=== PATIENT | male | born 1990 | race Caucasian/White ===

== ENCOUNTER 2016-07-07 17:45 | Emergency (ER) | payer OTHER ==
--- NOTE | 2016-07-07 18:49 | DIAGNOSTIC IMAGING REPORT ---
PROCEDURE: XR CHEST 2 VIEW INDICATION: SHORTNESS OF BREATH TECHNIQUE: Two views. COMPARISON: None. FINDINGS: The cardiomediastinal contour and central vasculature are within normal limits. The lungs are clear without focal consolidation, pleural effusion, or pneumothorax. The visualized osseous structures are intact. IMPRESSION: 1. Normal chest.
--- NOTE | 2016-07-07 20:35 | ED ORDER SUMMARY ---
..... Patient: RIMA GILL OrderSheet [facility] VisitID: [id number] [address] [place] [address] 26y, M Registration Date/Time: 07/07/2016 ORDER SHEET Weight: 81.6 kg (stated) Allergies: Acetaminophen, Sulfa Antibiotics, Naproxen GENERAL ORDERS: Chest 2V Urgent (18:06 07/07/2016 TChapman R.N. per protocol) (18:27 DDean R.N.) MEDICATION ORDERS: Morphine IM 10 mg (HIGH ALERT MEDICATION, NOW) (18:39 07/07/2016 Du Ballesteros) (Ack 18:41 DDean R.N.) (18:47 TChapman R.N.) IV FLUIDS: ORDER SHEET NOTES: [Electronically signed by Nancy Tobar R.N. (21:55 07/07/2016)] [Electronically signed by Dale Vega Dr. (03:21 07/15/2016)] [Electronically locked/signed by Nancy Tobar R.N. (21:55 07/07/2016)]
--- NOTE | 2016-07-07 20:35 | ED NURSING NOTES ---
Clinical Report - Nurses [facility] [address] [place] [address] 07/07/2016 17:48 [id number] TRI[facility] Triage time 17:52. Acuity: LEVEL 4. Chief Complaint: BACK PAIN. Alert. No acute distress. NICOLETTE COMA SCORE: [place] Coma Scale: 15- eyes open spontaneously (4); best verbal response- oriented x 4 (5); best motor response- obeys commands (6). --17:57 Fabiana Maldonado R.N. 17:52 07/07/16. BP: 110/79. HR: 66. RR: 18. O2 saturation: 100%. Temp: 98.2 F (oral). Pain level now: 810. --17:57 Fabiana Maldonado R.N. Weight: 81.6 kg stated. Height/Length: 72 inches Per Patient. BMI: 24.4. --17:55 Fabiana Maldonado R.N. Medications None. --17:54 Fabiana Maldonado R.N. Medication/allergy information source: the patient. --17:57 Fabiana Maldonado R.N. Allergies Acetaminophen. (liver problems) Sulfa Antibiotics.(Anaphylaxis) --17:54 Fabiana Maldonado R.N. Naproxen. (abdominal pain) --17:55 Fabiana Maldonado R.N. History Arrived by private vehicle. Historian: patient. Unaccompanied. Primary physician (none). Onset. (2 days ago). History of recent trauma- (slammed on his back roughhousing with a friend). SOCIAL HX: Heavy tobacco smoker- less than 1 pack per day. History of drug use: marijuana. No alcohol use. FALL RISK ASSESSMENT: Fall risk assessment completed. No fall risk identified. FUNCTIONAL ASSESSMENT: Functional assessment: no impairments noted. LEARNING NEEDS ASSESSMENT: The learning needs assessment revealed no barriers. --17:57 Fabiana Maldonado R.N. PROBLEMS: no known problems. ADDITIONAL SURGERIES: no known surgeries. Assessment GENERAL / NEURO / PSYCH: Alert. Oriented X 4. Appears in no acute distress. Patient appears calm and cooperative. RESPIRATORY: Respirations not labored. SKIN: Skin is warm and dry. --17:57 Fabiana Maldonado R.N. Interventions ID and allergy band on patient. To waiting room. --17:57 Fabiana Maldonado R.N. PHYSICAL ASSESSMENT 18:06. Ambulatory to room. GENERAL / NEURO / PSYCH: Alert. Appears in no acute distress. No numbness. RESPIRATORY: Mild respiratory distress. Chest wall tenderness. Decreased breath sounds in the left lung base and mid-lung. CVS: Capillary refill less than 2 seconds. GI / : Abdomen soft and nontender. Bowel sounds within normal limits. EXTREMITIES: Limited ROM present in the right shoulder and left shoulder and left upper arm. Sensation intact in extremities. BACK: Limited ROM of the neck and back. Soft tissue tenderness. --18:06 Ijeoma Medeiros R.N. NURSING PROGRESS NOTES 18:00. Patient gowned. Head of bed elevated. Reassurance given. Patient identifiers checked. Call light placed in reach. Side rails up. Bed placed in lowest position. Patient ready for evaluation- chart flagged. --18:26 Nancy Tobar R.N. 18:10. Patient walked to radiology with tech. --18:26 Nancy Tobar R.N. 18:20. Patient walked back to ED from radiology with tech. --18:27 Nancy Tobar R.N. 18:47 07/07/2016 Morphine (Morphine Sulfate (PF)) IM 10 mg given. Given in the left deltoid. Allergies verified, confirmed 5 rights and sedative warning given to the patient. --18:47 Ijeoma Medeiros R.N. Reassessment after medication administered. He is calm and resting quietly. Overall patient status is improved- he states feels better (states pain 6/10 now). --19:37 Nancy Tobar R.N. 19:30 07/07/16. BP: 98/58. HR: 90. RR: 16. O2 saturation: 98% on room air. Temp: deferred. Pain level now: 6/10. Additional comments: pt resting quietly,playing on phone. states pain is better now 10/25. --19:37 Nancy Tobar R.N. 20:15 on phone with friend to come shrimp picker up. --21:55 Nancy Tobar R.N. DISPOSITION / DISCHARGE 20:45. Condition at departure: stable. No learning barriers present. Discharge instructions provided and reviewed with the patient. Reviewed medication(s) (oxycodon). Patient verbalized understanding. Written instructions provided in Slovak. The patient was discharged home and accompanied by meat stuffer. He left the Emergency Department ambulatory and via private vehicle. [employer] driving. --21:54 Nancy Tobar R.N. 20:45 07/07/16. BP: 104/66. HR: 92. RR: 20. O2 saturation: 98% on room air. Temp: deferred. Pain level now: 10/25. --21:54 Nancy Tobar R.N. Locked/Released at 07/07/2016 21:55 by Nancy Tobar R.N.
--- NOTE | 2016-07-07 20:35 | ED NURSING NOTES ---
Clinical Report - Nurses [facility] [address] [place] [address] 07/07/2016 17:48 [id number] Triage time 17:52. Acuity: LEVEL 4. Chief Complaint: BACK PAIN. Alert. No acute distress. NICOLETTE COMA SCORE: [place] Coma Scale: 15- eyes open spontaneously (4); best verbal response- oriented x 4 (5); best motor response- obeys commands (6). --17:57 Fabiana Maldonado R.N. 17:52 07/07/16. BP: 110/79. HR: 66. RR: 18. O2 saturation: 100%. Temp: 98.2 F (oral). Pain level now: 810. --17:57 Fabiana Maldonado R.N. Weight: 81.6 kg stated. Height/Length: 72 inches Per Patient. BMI: 24.4. --17:55 Fabiana Maldonado R.N. Medications None. --17:54 Fabiana Maldonado R.N. Medication/allergy information source: the patient. --17:57 Fabiana Maldonado R.N. Allergies Acetaminophen. (liver problems) Sulfa Antibiotics.(Anaphylaxis) --17:54 Fabiana Maldonado R.N. Naproxen. (abdominal pain) --17:55 Fabiana Maldonado R.N. History Arrived by private vehicle. Historian: patient. Unaccompanied. Primary physician (none). Onset. (2 days ago). History of recent trauma- (slammed on his back roughhousing with a friend). SOCIAL HX: Heavy tobacco smoker- less than 1 pack per day. History of drug use: marijuana. No alcohol use. FALL RISK ASSESSMENT: Fall risk assessment completed. No fall risk identified. FUNCTIONAL ASSESSMENT: Functional assessment: no impairments noted. LEARNING NEEDS ASSESSMENT: The learning needs assessment revealed no barriers. --17:57 Fabiana Maldonado R.N. PROBLEMS: no known problems. ADDITIONAL SURGERIES: no known surgeries. Assessment GENERAL / NEURO / PSYCH: Alert. Oriented X 4. Appears in no acute distress. Patient appears calm and cooperative. RESPIRATORY: Respirations not labored. SKIN: Skin is warm and dry. --17:57 Fabiana Maldonado R.N. Interventions ID and allergy band on patient. To waiting room. --17:57 Fabiana Maldonado R.N. PHYSICAL ASSESSMENT 18:06. Ambulatory to room. GENERAL / NEURO / PSYCH: Alert. Appears in no acute distress. No numbness. RESPIRATORY: Mild respiratory distress. Chest wall tenderness. Decreased breath sounds in the left lung base and mid-lung. CVS: Capillary refill less than 2 seconds. GI / : Abdomen soft and nontender. Bowel sounds within normal limits. EXTREMITIES: Limited ROM present in the right shoulder and left shoulder and left upper arm. Sensation intact in extremities. BACK: Limited ROM of the neck and back. Soft tissue tenderness. --18:06 Ijeoma Medeiros R.N. NURSING PROGRESS NOTES 18:00. Patient gowned. Head of bed elevated. Reassurance given. Patient identifiers checked. Call light placed in reach. Side rails up. Bed placed in lowest position. Patient ready for evaluation- chart flagged. --18:26 Nancy Tobar R.N. 18:10. Patient walked to radiology with tech. --18:26 Nancy Tobar R.N. 18:20. Patient walked back to ED from radiology with tech. --18:27 Nancy Tobar R.N. 18:47 07/07/2016 Morphine (Morphine Sulfate (PF)) IM 10 mg given. Given in the left deltoid. Allergies verified, confirmed 5 rights and sedative warning given to the patient. --18:47 Ijeoma Medeiros R.N. Reassessment after medication administered. He is calm and resting quietly. Overall patient status is improved- he states feels better (states pain 6/10 now). --19:37 Nancy Tobar R.N. 19:30 07/07/16. BP: 98/58. HR: 90. RR: 16. O2 saturation: 98% on room air. Temp: deferred. Pain level now: 6/10. Additional comments: pt resting quietly,playing on phone. states pain is better now 10/25. --19:37 Nancy Tobar R.N. 20:15 on phone with friend to come picker machine operator up. --21:55 Nancy Tobar R.N. DISPOSITION / DISCHARGE 20:45. Condition at departure: stable. No learning barriers present. Discharge instructions provided and reviewed with the patient. Reviewed medication(s) (oxycodon). Patient verbalized understanding. Written instructions provided in [place]ian. The patient was discharged home and accompanied by countersinker balance screw hole. He left the Emergency Department ambulatory and via private vehicle. [employer] Records Field Technician driving. --21:54 Nancy Tobar R.N. 20:45 07/07/16. BP: 104/66. HR: 92. RR: 20. O2 saturation: 98% on room air. Temp: deferred. Pain level now: 10/25. --21:54 Nancy Tobar R.N. Locked/Released at 07/07/2016 21:55 by Nancy Tobar R.N.
--- NOTE | 2016-07-07 20:35 | ED ORDER SUMMARY ---
..... Patient: RIMA GILL OrderSheet [facility] VisitID: [id number] [address] [place] [address] 26y, M Registration Date/Time: 07/07/2016 ORDER SHEET Weight: 81.6 kg (stated) Allergies: Acetaminophen, Sulfa Antibiotics, Naproxen GENERAL ORDERS: Chest 2V Urgent (18:06 07/07/2016 TChapman R.N. per protocol) (18:27 DDean R.N.) MEDICATION ORDERS: Morphine IM 10 mg (HIGH ALERT MEDICATION, NOW) (18:39 07/07/2016 Du Ballesteros) (Ack 18:41 DDean R.N.) (18:47 TChapman R.N.) IV FLUIDS: ORDER SHEET NOTES: [Electronically signed by Nancy Tobar R.N. (21:55 07/07/2016)] [Electronically signed by Dale Vega Dr. (03:21 07/15/2016)] [Electronically locked/signed by Nancy Tobar R.N. (21:55 07/07/2016)]
--- NOTE | 2016-07-07 20:40 | ED CLINICAL REPORT ---
Clinical Report - Physicians/Mid Levels [facility] [address] [place] [address] 07/07/2016 17:48 Patient: RIMA GILL Arrived- By private vehicle. Historian- patient. HISTORY OF PRESENT ILLNESS Chief Complaint: Injury to BACK. Location of injuries- (left upper back). The injury occurred today. ("body slammed on back while wrestling with friend"). Occurred at home. The patient complains of moderate pain. No blow to the head, neck pain, loss of consciousness or seizure. Not dazed. REVIEW OF SYSTEMS No numbness, weakness, hearing loss, chest pain or depression. No difficulty breathing, nausea or laceration. All systems otherwise negative, except as recorded above. PAST HISTORY See nurses notes. Tetanus immunization status is up-to-date. Problems: no known problems. Additional Surgeries: no known surgeries. Medications: None. Allergies: Acetaminophen. (liver problems) Naproxen. (abdominal pain) Sulfa Antibiotics.(Anaphylaxis). SOCIAL HISTORY Smoker- current status unknown. History of occasional drug use: marijuana. No alcohol use. Is a local resident. ADDITIONAL NOTES The nursing notes have been reviewed. PHYSICAL EXAM Vital Signs: 07/07/2016 17:52 BP: 110/79. HR: 66. RR: 18. O2 saturation: 100%. Temp: 98.2 F. Pain level now: 8/10. Blood pressure normal. Oxygen saturation normal. Appearance: Alert. Oriented X3. No acute distress. Head: Head non-tender. No swelling of head. No Vital's sign or raccoon eyes. Eyes: Pupils equal, round and reactive to light. Pupillary exam: Right pupil round and reactive to light directly and consensually. Left pupil: 3mm, round and reactive to light directly and consensually and with accommodation. EOM intact. ENT: No dental injury. No hemotympanum. Pharynx normal. Neck: No decreased ROM in the neck. Painless ROM. Non-tender. No vertebral tenderness. CVS: Heart sounds normal. Pulses normal. Respiratory: Breath sounds normal. Chest nontender. No rales, wheezes, rhonchi or crepitus. Abdomen: No visible injury. Soft and nontender. Bowel sounds normal. No mass. Back: Mild soft-tissue tenderness (left lateral upper back). ROM normal. No vertebral point tenderness, muscle spasm or limitation in ROM. (no overlying skin changes. no crepitus.). Skin: Skin intact. Skin warm and dry. Normal skin color. Normal skin turgor. Extremities: Normal inspection. Extremities atraumatic. Neuro: [place] Coma Scale: 15- eyes open spontaneously (4); best verbal response- oriented x 3 (5); best motor response- obeys commands (6). Oriented X 3. No motor deficit. LABS, X-RAYS, AND EKG Chest X-ray: (PROCEDURE: XR CHEST 2 VIEW INDICATION: SHORTNESS OF BREATH TECHNIQUE: Two views. COMPARISON: None. FINDINGS: The cardiomediastinal contour and central vasculature are within normal limits. The lungs are clear without focal consolidation, pleural effusion, or pneumothorax. The visualized osseous structures are intact. IMPRESSION: 1. Normal chest.). Views: PA and lateral. The X-rays were independently viewed by me, interpreted by the radiologist and discussed with the radiologist. PROGRESS AND PROCEDURES Course of Care: the patient is a pleasant 26-year-old male presenting for evaluation of traumatic injury from wrestling with his friend. The patient has no outward signs of trauma on examination however does have some tenderness to the left upper back. Lungs are clear to auscultation. Do not feel patient has pneumothorax. Vital signs here in the emergency Department otherwise unremarkable. Patient without any shortness of breath. Pain medication provided here in the emergency department. Patient will be evaluated with chest x-ray. Patient is agreeable to treatment plan. The patient's chest x-ray was reviewed. No signs of pneumothorax or rib fractures Patient's pain had significantly improved while pain medication here in the emergency department. Had discussion with patient in regards to pneumothorax and reasons to return to the emergency department. Also discussed the patient pneumonia risk reduction with deep respirations and splinting with a pillow. Do not feel patient needs to be admitted to the hospital require further emergency department workuas been here and has not had any worsening of his symptoms. Patient is resting and in no acute distress. Discussed the patient workup, diagnosis, home care, follow-up, and return precautions. All questions answered. The patient expressed understanding of these instructions and was agreeable to them. Also discussed the patient diagnostic concerning to here in the emergency department and need for primary care follow-up and also possibility of small work and ribs that may not be found onx-ray here in the emergency department but may be evident later on in future imaging. Disposition: Discharged. Condition: good. CLINICAL IMPRESSION 07/07/2016 17:52 BP: 110/79. HR: 66. RR: 18. O2 saturation: 100%. Temp: 98.2 F. Pain level now: 8/10. Blood pressure normal. Oxygen saturation normal. Single contusion to the left chest. (lateral posterior). INSTRUCTIONS Warnings: GENERAL WARNINGS: Return or contact your physician immediately if your condition worsens or changes unexpectedly, if not improving as expected, or if other problems arise. SPECIFICALLY, return if you develop weakness, numbness, tingling, pain or incontinence. shortness of breath, worsening pain, or other concerns. Your Current Medications: CONTINUE TAKING THE FOLLOWING MEDICATIONS: None*. Prescription Medications: Oxycodone 5 mg tablets: take 1 orally every 6 hours as needed for pain. Dispense ten (10). No refill. Follow-up: Return to the emergency department as needed. Follow up with your doctor in three days. Reason for referral: rechecked todaysconcerns. Summary of care provided to patient via paper. Screening today revealed the patient's blood pressure to be in the normal range. The patient should follow up with a primary care provider for blood pressure management. Understanding of the discharge instructions verbalized by patient. (Electronically signed by Dale Vega Dr. 07/15/2016 3:21)
--- NOTE | 2016-07-15 03:22 | ED MED RECONCILIATION SUMMARY ---
Patient: RIMA GILL Medication Reconciliation Report [facility] VisitID: [id number] [address] [place] [address] 26y, M Registration Date/Time: 07/07/2016 Weight: 81.6 kg Height/Length: 72 in. BMI: 24.4 ALLERGIES: Acetaminophen, Naproxen, Sulfa Antibiotics The patient's Home Medications are listed below: NONE. The source(s) of the original Home Medication information: patient The following Medications were given to the patient in the Emergency Department: Morphine [IM] IM 10 mg, administered: 07/07/2016 6:47:00 PM The following Medications were prescribed to the patient: Oxycodone 5 mg tablets: take 1 orally every 6 hours as needed for pain. Dispense ten (10). No refill. -- Dale Vega Dr.
--- NOTE | 2016-07-15 03:22 | ED DISCHARGE INSTRUCTIONS ---
Patient: RIMA GILL General Instructions [facility] VisitID: [id number] [place] [address] 26y, M Registration Date/Time: 07/07/2016 07/07/2016 17:52 BP: 110/79. HR: 66. RR: 18. O2 saturation: 100%. Temp: 98.2 F. Pain level now: 8/10. Blood pressure normal. Oxygen saturation normal. Single contusion to the left chest. (lateral posterior). INSTRUCTIONS Warnings: GENERAL WARNINGS: Return or contact your physician immediately if your condition worsens or changes unexpectedly, if not improving as expected, or if other problems arise. SPECIFICALLY, return if you develop weakness, numbness, tingling, pain or incontinence. shortness of breath, worsening pain, or other concerns. Your Current Medications: CONTINUE TAKING THE FOLLOWING MEDICATIONS: None*. Prescription Medications: Oxycodone 5 mg tablets: take 1 orally every 6 hours as needed for pain. Dispense ten (10). No refill. Follow-up: Return to the emergency department as needed. Follow up with your doctor in three days. Reason for referral: rechecked todaysconcerns. Summary of care provided to patient via paper. Screening today revealed the patient's blood pressure to be in the normal range. The patient should follow up with a primary care provider for blood pressure management. Understanding of the discharge instructions verbalized by patient. ADDITIONAL INFORMATION Oxycodone Hydrochloride, Acetaminophen Oral tablet What is this medicine? ACETAMINOPHEN; OXYCODONE (a set a SANTIAGO quynh fen; ox i KOE done) is a pain reliever. It is used to treat mild to moderate pain. How should I use this medicine? Take this medicine by mouth with a full glass of water. Follow the directions on the prescription label. Take your medicine at regular intervals. Do not take your medicine more often than directed. Talk to your tape making machine operator regarding the use of this medicine in children. Special care may be needed. Patients over 65 years old may have a stronger reaction and need a smaller dose. What side effects may I notice from receiving this medicine? Side effects that you should report to your doctor or health administrator health care facility as soon as possible: allergic reactions like skin rash, itching or hives, swelling of the face, lips, or tongue breathing difficulties, wheezing confusion light headedness or fainting spells severe stomach pain yellowing of the skin or the whites of the eyes Side effects that usually do not require medical attention (report to your doctor or health administrator health care facility if they continue or are bothersome): dizziness drowsiness nausea vomiting What may interact with this medicine? alcohol antihistamines barbiturates like amobarbital, butalbital, butabarbital, methohexital, pentobarbital, phenobarbital, thiopental, and secobarbital benztropine drugs for bladder problems like solifenacin, trospium, oxybutynin, tolterodine, hyoscyamine, and methscopolamine drugs for breathing problems like ipratropium and tiotropium drugs for certain stomach or intestine problems like propantheline, homatropine methylbromide, glycopyrrolate, atropine, belladonna, and dicyclomine general anesthetics like etomidate, ketamine, nitrous oxide, propofol, desflurane, enflurane, halothane, isoflurane, and sevoflurane medicines for depression, anxiety, or psychotic disturbances medicines for sleep muscle relaxants naltrexone narcotic medicines (opiates) for pain phenothiazines like perphenazine, thioridazine, chlorpromazine, mesoridazine, fluphenazine, prochlorperazine, promazine, and trifluoperazine scopolamine tramadol trihexyphenidyl What if I miss a dose? If you miss a dose, take it as soon as you can. If it is almost time for your next dose, take only that dose. Do not take double or extra doses. Where should I keep my medicine? Keep out of the reach of children. This medicine can be abused. Keep your medicine in a safe place to protect it from theft. Do not share this medicine with anyone. Selling or giving away this medicine is dangerous and against the law. Store at room temperature between 20 and 25 degrees C (68 and 77 degrees F). Keep container tightly closed. Protect from light. This medicine may cause accidental overdose and if it is taken by other adults, children, or pets. Flush any unused medicine down the toilet to reduce the chance of harm. Do not use the medicine after the expiration date. What should I tell my health care provider before I take this medicine? They need to know if you have any of these conditions: brain tumor Crohn's disease, inflammatory bowel disease, or ulcerative colitis drink more than 3 alcohol containing drinks per day drug abuse or addiction head injury heart or circulation problems kidney disease or problems going to the bathroom liver disease lung disease, asthma, or breathing problems an unusual or allergic reaction to acetaminophen, oxycodone, other opioid analgesics, other medicines, foods, dyes, or preservatives or trying to get breast-feeding What should I watch for while using this medicine? Tell your doctor or health administrator health care facility if your pain does not go away, if it gets worse, or if you have new or a different type of pain. You may develop tolerance to the medicine. Tolerance means that you will need a higher dose of the medication for pain relief. Tolerance is normal and is expected if you take this medicine for a long time. Do not suddenly stop taking your medicine because you may develop a severe reaction. Your body becomes used to the medicine. This does NOT mean you are addicted. Addiction is a behavior related to getting and using a drug for a non-medical reason. If you have pain, you have a medical reason to take pain medicine. Your doctor will tell you how much medicine to take. If your doctor wants you to stop the medicine, the dose will be slowly lowered over time to avoid any side effects. You may get drowsy or dizzy. Do not drive, use machinery, or do anything that needs mental alertness until you know how this medicine affects you. Do not stand or sit up quickly, especially if you are an older patient. This reduces the risk of dizzy or fainting spells. Alcohol may interfere with the effect of this medicine. Avoid alcoholic drinks. There are different types of narcotic medicines (opiates) for pain. If you take more than one type at the same time, you may have more side effects. Give your health care provider a list of all medicines you use. Your doctor will tell you how much medicine to take. Do not take more medicine than directed. Call emergency for help if you have problems breathing. The medicine will cause constipation. Try to have a bowel movement at least every 2 to 3 days. If you do not have a bowel movement for 3 days, call your doctor or health administrator health care facility. Do not take Tylenol (acetaminophen) or medicines that have acetaminophen with this medicine. Too much acetaminophen can be very dangerous. Many nonprescription medicines contain acetaminophen. Always read the labels carefully to avoid taking more acetaminophen. You have been given the following additional information: Oxycodone Hydrochloride, Acetaminophen Oral tablet (Electronically signed by Dale Vega Dr. 07/15/2016 3:21)
--- NOTE | 2016-07-15 03:22 | ED MAR SUMMARY ---
..... Medication Administration Record [facility] [address] [place] [address] Patient: RIMA GILL Visit ID: [id number] 26y, M Weight: 81.6 kg Height/Length: 72 in BMI: 24.4 ALLERGIES: Naproxen, Sulfa Antibiotics, Acetaminophen Given 18:47 07/07/2016 Ijeoma Medeiros R.N. Medication Administered: MORPHINE [IM] (MORPHINE SULFATE (PF)), Dose: 10 mg IM. Medication Ordered: Morphine IM 10 mg (HIGH ALERT MEDICATION, NOW).
--- NOTE | 2016-07-15 03:22 | ED MED RECONCILIATION SUMMARY ---
Patient: RIMA GILL Medication Reconciliation Report [facility] VisitID: [id number] [address] [place] [address] 26y, M Registration Date/Time: 07/07/2016 Weight: 81.6 kg Height/Length: 72 in. BMI: 24.4 ALLERGIES: Acetaminophen, Naproxen, Sulfa Antibiotics The patient's Home Medications are listed below: NONE. The source(s) of the original Home Medication information: patient The following Medications were given to the patient in the Emergency Department: Morphine [IM] IM 10 mg, administered: 07/07/2016 6:47:00 PM The following Medications were prescribed to the patient: Oxycodone 5 mg tablets: take 1 orally every 6 hours as needed for pain. Dispense ten (10). No refill. -- Dale Vega Dr.
--- NOTE | 2016-07-15 03:22 | ED MAR SUMMARY ---
..... Medication Administration Record [facility] [address] [place] [address] Patient: RIMA GILL Visit ID: [id number] 26y, M Weight: 81.6 kg Height/Length: 72 in BMI: 24.4 ALLERGIES: Naproxen, Sulfa Antibiotics, Acetaminophen Given 18:47 07/07/2016 Ijeoma Medeiros R.N. Medication Administered: MORPHINE [IM] (MORPHINE SULFATE (PF)), Dose: 10 mg IM. Medication Ordered: Morphine IM 10 mg (HIGH ALERT MEDICATION, NOW).
--- NOTE | 2016-07-15 03:22 | ED DISCHARGE INSTRUCTIONS ---
Patient: RIMA GILL General Instructions [facility] VisitID: [id number] [place] [address] 26y, M Registration Date/Time: 07/07/2016 07/07/2016 17:52 BP: 110/79. HR: 66. RR: 18. O2 saturation: 100%. Temp: 98.2 F. Pain level now: 8/10. Blood pressure normal. Oxygen saturation normal. Single contusion to the left chest. (lateral posterior). INSTRUCTIONS Warnings: GENERAL WARNINGS: Return or contact your physician immediately if your condition worsens or changes unexpectedly, if not improving as expected, or if other problems arise. SPECIFICALLY, return if you develop weakness, numbness, tingling, pain or incontinence. shortness of breath, worsening pain, or other concerns. Your Current Medications: CONTINUE TAKING THE FOLLOWING MEDICATIONS: None*. Prescription Medications: Oxycodone 5 mg tablets: take 1 orally every 6 hours as needed for pain. Dispense ten (10). No refill. Follow-up: Return to the emergency department as needed. Follow up with your doctor in three days. Reason for referral: rechecked todaysconcerns. Summary of care provided to patient via paper. Screening today revealed the patient's blood pressure to be in the normal range. The patient should follow up with a primary care provider for blood pressure management. Understanding of the discharge instructions verbalized by patient. ADDITIONAL INFORMATION Oxycodone Hydrochloride, Acetaminophen Oral tablet What is this medicine? ACETAMINOPHEN; OXYCODONE (a set a SANTIAGO quynh fen; ox i KOE done) is a pain reliever. It is used to treat mild to moderate pain. How should I use this medicine? Take this medicine by mouth with a full glass of water. Follow the directions on the prescription label. Take your medicine at regular intervals. Do not take your medicine more often than directed. Talk to your senior biostatistician regarding the use of this medicine in children. Special care may be needed. Patients over 65 years old may have a stronger reaction and need a smaller dose. What side effects may I notice from receiving this medicine? Side effects that you should report to your doctor or health care director rn as soon as possible: allergic reactions like skin rash, itching or hives, swelling of the face, lips, or tongue breathing difficulties, wheezing confusion light headedness or fainting spells severe stomach pain yellowing of the skin or the whites of the eyes Side effects that usually do not require medical attention (report to your doctor or health care director rn if they continue or are bothersome): dizziness drowsiness nausea vomiting What may interact with this medicine? alcohol antihistamines barbiturates like amobarbital, butalbital, butabarbital, methohexital, pentobarbital, phenobarbital, thiopental, and secobarbital benztropine drugs for bladder problems like solifenacin, trospium, oxybutynin, tolterodine, hyoscyamine, and methscopolamine drugs for breathing problems like ipratropium and tiotropium drugs for certain stomach or intestine problems like propantheline, homatropine methylbromide, glycopyrrolate, atropine, belladonna, and dicyclomine general anesthetics like etomidate, ketamine, nitrous oxide, propofol, desflurane, enflurane, halothane, isoflurane, and sevoflurane medicines for depression, anxiety, or psychotic disturbances medicines for sleep muscle relaxants naltrexone narcotic medicines (opiates) for pain phenothiazines like perphenazine, thioridazine, chlorpromazine, mesoridazine, fluphenazine, prochlorperazine, promazine, and trifluoperazine scopolamine tramadol trihexyphenidyl What if I miss a dose? If you miss a dose, take it as soon as you can. If it is almost time for your next dose, take only that dose. Do not take double or extra doses. Where should I keep my medicine? Keep out of the reach of children. This medicine can be abused. Keep your medicine in a safe place to protect it from theft. Do not share this medicine with anyone. Selling or giving away this medicine is dangerous and against the law. Store at room temperature between 20 and 25 degrees C (68 and 77 degrees F). Keep container tightly closed. Protect from light. This medicine may cause accidental overdose and if it is taken by other adults, children, or pets. Flush any unused medicine down the toilet to reduce the chance of harm. Do not use the medicine after the expiration date. What should I tell my health care provider before I take this medicine? They need to know if you have any of these conditions: brain tumor Crohn's disease, inflammatory bowel disease, or ulcerative colitis drink more than 3 alcohol containing drinks per day drug abuse or addiction head injury heart or circulation problems kidney disease or problems going to the bathroom liver disease lung disease, asthma, or breathing problems an unusual or allergic reaction to acetaminophen, oxycodone, other opioid analgesics, other medicines, foods, dyes, or preservatives or trying to get breast-feeding What should I watch for while using this medicine? Tell your doctor or health care director rn if your pain does not go away, if it gets worse, or if you have new or a different type of pain. You may develop tolerance to the medicine. Tolerance means that you will need a higher dose of the medication for pain relief. Tolerance is normal and is expected if you take this medicine for a long time. Do not suddenly stop taking your medicine because you may develop a severe reaction. Your body becomes used to the medicine. This does NOT mean you are addicted. Addiction is a behavior related to getting and using a drug for a non-medical reason. If you have pain, you have a medical reason to take pain medicine. Your doctor will tell you how much medicine to take. If your doctor wants you to stop the medicine, the dose will be slowly lowered over time to avoid any side effects. You may get drowsy or dizzy. Do not drive, use machinery, or do anything that needs mental alertness until you know how this medicine affects you. Do not stand or sit up quickly, especially if you are an older patient. This reduces the risk of dizzy or fainting spells. Alcohol may interfere with the effect of this medicine. Avoid alcoholic drinks. There are different types of narcotic medicines (opiates) for pain. If you take more than one type at the same time, you may have more side effects. Give your health care provider a list of all medicines you use. Your doctor will tell you how much medicine to take. Do not take more medicine than directed. Call emergency for help if you have problems breathing. The medicine will cause constipation. Try to have a bowel movement at least every 2 to 3 days. If you do not have a bowel movement for 3 days, call your doctor or health care director rn. Do not take Tylenol (acetaminophen) or medicines that have acetaminophen with this medicine. Too much acetaminophen can be very dangerous. Many nonprescription medicines contain acetaminophen. Always read the labels carefully to avoid taking more acetaminophen. You have been given the following additional information: Oxycodone Hydrochloride, Acetaminophen Oral tablet (Electronically signed by Dale Vega Dr. 07/15/2016 3:21)
== END 2016-07-07 20:45 | disposition home or self-care (01) ==
LOC: ED SRH 17:45
DX: S20.222A Contusion of left back wall of thorax, initial encounter (principal); X50.3XXA Overexertion from repetitive movements, initial encounter; Y93.72 Activity, wrestling; Y99.8 Other external cause status; Y92.009 Unspecified place in unspecified non-institutional (private) residence as the place of occurrence of the external cause; Z88.2 Allergy status to sulfonamides; Z88.5 Allergy status to narcotic agent; Z88.6 Allergy status to analgesic agent